=== PATIENT | female | born 1990 | race Caucasian/White ===

== ENCOUNTER 2019-01-01 14:54 | Emergency (ER) | payer MEDICAID ==
[~2019-01-01] VITALS: Ht 165.1 cm; Wt 60.8 kg
[2019-01-01 15:26] VITALS: BP 134/84
[2019-01-01] MEDS ORDERED: predniSONE 20 MG TABLET ONE (15:41)
[2019-01-01] MEDS: predniSONE 20 MG TABLET PO ONE (15:44)
--- NOTE | 2019-01-01 15:45 | NUR ---
CALLED FOR BREATHING [place]
[2019-01-01] MEDS ORDERED: ALBUTEROL FS 2.5 MG/3 ML VIAL.NEB ONE (15:47)
[2019-01-01] MEDS ORDERED: IPRATROPIUM NEB FS 0.5 MG/2.5 ML AMPUL.NEB ONE (15:47)
[2019-01-01] MEDS: ALBUTEROL FS 2.5 MG/3 ML VIAL.NEB NEB ONE (15:49)
[2019-01-01] MEDS: IPRATROPIUM NEB FS 0.5 MG/2.5 ML AMPUL.NEB NEB ONE (15:49)
--- NOTE | 2019-01-01 16:24 | NUR ---
incentive spirometer provided to patient. Patient was taught how to use IS and return demo was done. Patient discharged to home in stable condition. Written and verbal after care instructions given. Patient verbalizes understanding of instruction.
== END 2019-01-01 16:27 | disposition home or self-care (01) ==
LOC: ER 15:01
DX: J45.909 Unspecified asthma, uncomplicated (principal)
CPT/HCPCS: 94640; 99283; J7512